=== PATIENT | female | born 1950 | race Caucasian/White ===

== ENCOUNTER 2016-12-11 12:46 | Inpatient (IN) | payer MEDICARE, OTHER ==
[~2016-12-11] VITALS: Ht 165.1 cm; Wt 105.5 kg
--- NOTE | ~2016-12-11 | CO ---
Unit #: [id number] #: [id number] Patient: JOSEY JULIAN [id number] [address] [place], [place] [address] [id number] MR#: [id number] NAME: JOSEY JULIAN ROOM: 478 Age: 66 Sex: F Admission Date: 12/11/2016 : 1950 Attending Physician: Omi Kraus M.D. Primary Care Physician: Yves Doctor Not In System Consultation Date: 12/12/2016 CONSULTATION REPORT REQUESTING PHYSICIAN Dr. Kraus. REASON FOR CONSULTATION Right hip infection. HISTORY OF PRESENT ILLNESS Ms. Julian is a 66-year-old female who had her right hip replaced back on November 15, 2016. At that point, she had been at a long term where she had been receiving IV vancomycin since hip replacement. She was noted to have increasing drainage as well as swelling and discomfort and saw Dr. Kraus in the outpatient office and was advised to come back in. She is now status post I and D of right hip joint placement. Surgical cultures are currently growing gram-negative rods. We have been asked to see the patient for antibiotic management. The patient is currently on vancomycin and Kefzol. PAST MEDICAL HISTORY 1. Hypertension. 2. Hypothyroidism. 3. Dyslipidemia. 4. Anxiety. 5. Bipolar. 6. Coronary artery disease. 7. History of previous stents. 8. COPD. 9. GERD. 10. Sleep apnea on CPAP. 11. Osteoarthritis. 12. DVT. PAST SURGICAL HISTORY 1. Right total hip arthroplasty about five years ago with closed reduction and acetabular revision on March 13, 2016. 2. History of removal in April of this past year and then replacement again in October of this past year of right hip. 3. History of left ankle, knee surgery. 4. History of left ankle open reduction internal fixation. SOCIAL HISTORY Patient is a former smoker but denies any smoking at this time. Denies any illicit drug use. Denies any alcohol use. She has currently been staying in a long term since her last replacement in October. Unit #: [id number] #: [id number] Patient: JOSEY JULIAN FAMILY HISTORY Noncontributory. ALLERGIES Codeine and morphine. MEDICATIONS Current medications reviewed. Patient is currently on vancomycin and Kefzol. REVIEW OF SYSTEMS All negative except for those stated in HPI which consists of right hip pain, drainage, redness, and tenderness. PHYSICAL EXAMINATION GENERAL: Pleasant, sitting up in the chair in no apparent distress, no current complaints. Alert and oriented. VITAL SIGNS: Current vital signs: Temperature is 98.5, heart rate 62, respirations 14, blood pressure 101/53. HEENT: Pupils equal, round, and reactive to light and accommodation. Head is normocephalic. NECK: Supple. CARDIOVASCULAR: Regular rate. Murmur auscultated. RESPIRATORY: Clear to auscultation, nonlabored. ABDOMEN: Soft, nontender. Positive bowel sounds. MUSCULOSKELETAL: Limited right hip movement. Moves all extremities equally. NEUROLOGIC: Alert and oriented. SKIN: Dry and intact. Right hip with surgical dressing in place and two drains in place. DIAGNOSTIC STUDIES LABORATORY: Glucose is 109, BUN 17, creatinine 0.9, sodium 140, potassium 3.9, chloride 105, CO2 is 26. White count 7.9, hemoglobin 8.4, hematocrit 24.5, platelets 343,000. IMAGING: None. MICROBIOLOGY: Current cultures from December 11: Hip culture with gram-negative rods. All other cultures are pending and pending sensitivity and organism identification. ASSESSMENT A 66-year-old female with recent right total hip replacement in October of this past year, status post incision and drainage and cultures currently growing with gram-negative rods. At this point, will continue vancomycin and will broaden antibiotics and discontinue Kefzol. Since patient recently has been residing in a long term, will cover for any possible multi-drug resistant organisms and change Kefzol to meropenem. Will followup on identification of cultures. Will also followup on operative report. At this point, will anticipate at least six weeks of IV antibiotics. Patient already has a PICC line in place, but will discuss further plans with Dr. Sousa who will see patient later in the day. At this point, patient is clinically stable and tolerating antibiotics. Will continue same for now and further recommendations to come from Dr. Sousa. Unit #: [id number] #: [id number] Patient: DERICJOSEY Dictated by... Marlin Gómez APRN for Alon Epstein/stalin TD: 12/12/2016 09:25 JOB #: [id number] CONSULTATION REPORT Page 1 of 1 X X CONSULTATION REPORT
--- NOTE | ~2016-12-11 | DS ---
Unit #: [id number] #: [id number] Patient: JOSEY LEOS [id number] [place] [id number] [facility]. [place], [place] [address] [id number] I MR#: [id number] NAME: JOSEY LEOS ROOM: 47 Age: 66 Sex: F Admission Date: 12/11/2016 : 1950 Discharge Date: 12/14/2016 Attending Physician: Omi Kraus M.D. Primary Care Physician: Generic Doctor Not In System DISCHARGE SUMMARY ADMITTING DIAGNOSIS Infected right total hip. DISCHARGE DIAGNOSIS Infected right total hip. PROCEDURES IN THE HOSPITAL I and D with poly exchange. SURGEON Dr. Kraus. HOSPITAL COURSE Patient admitted on 12/11 and taken to the operating room where she underwent the above procedure. Postoperatively, she has done fairly well. Her neurovascular exam is intact. She has been anemic and has required transfusion. She is getting another unit today. Her hemoglobin is 6.9. Her cultures are growing Klebsiella. She has been seen by infectious disease and is on Rocephin. It is felt she can be discharged to rehab today. She is on Coumadin for DVT prophylaxis. DISCHARGE INSTRUCTIONS 1. She is weightbearing as tolerated. 2. She will follow up in the office in two weeks. 3. The plan is to treat her for six weeks with IV antibiotics and then switch her over to Bactrim DS, which the organism is also sensitive to. CONDITION ON DISCHARGE Improved. DISPOSITION To rehab. Dictated by... Alon Maloney/nabil TD: 12/14/2016 08:00 Unit #: [id number] #: [id number] Patient: JOSEY LEOS JOB #: [id number] DISCHARGE SUMMARY Page 1 of 1 X Omi Kraus MD X DISCHARGE SUMMARY
--- NOTE | ~2016-12-11 | OR ---
Unit #: [id number] #: [id number] Patient: JOSEY LEOS [id number] [address] [place], [place] [address] [id number] MR#: [id number] NAME: JOSEY LEOS ROOM: 478 Date of Procedure: 12/11/2016 Admission Date: 12/11/2016 Surgeon: Omi Kraus M.D. : 1950 Attending Physician: Omi Kraus M.D. Primary Care Physician: Generic Doctor Not In System OPERATIVE REPORT PREOPERATIVE DIAGNOSIS Right hip infection. POSTOPERATIVE DIAGNOSIS Right hip infection. PROCEDURE PERFORMED I and D with poly exchange, right hip. ASSISTANTS Christopher and Dash. ANESTHESIA General. ESTIMATED BLOOD LOSS 200 to 400 mL. DESCRIPTION OF PROCEDURE The patient was brought to the operating room. She has already been on IV vancomycin. She was given a general anesthetic, placed in a decubitus position with the right side up. The right hip was prepped and draped in sterile fashion. [place] were removed from her previous reimplant, approximately 2-1/2 weeks ago. After the hip was prepped and draped, the previous skin incision was excised. The tissue was sent for culture as well as swabs of the fluid. The patient then had the subcutaneous dissected away and appeared to be infected. The joint was entered and there was cloudy fluid present. This was cultured. We then debrided the area as completely as possible. The hip was dislocated posteriorly. The head was removed. The stem was solid as was the cup. The liner was removed from the cup. The area was debrided, soaked in Betadine for 2 or 3 minutes and then irrigated with 3000 mL of bacitracin fluid. A new 52 neutral liner was positioned in the cup and then a +5, 36 head was applied. The hip was reduced and was found to be stable. Drain was positioned. The wound was irrigated one last time and then, the fascia was closed with 0 Vicryl. We then placed a drain in the subcu, and the subcutaneous was closed with 0 and 2-0 Vicryl, sekou in the skin. Sterile dressing applied. Abduction pillow positioned and general anesthetic was reversed. Dictated by... Unit #: [id number] #: [id number] Patient: JOSEY LEOS Alon Maloney/harrison TD: 12/12/2016 06:23 JOB #: [id number] OPERATIVE REPORT Page 1 of 1 X Omi Kraus MD PROCEDURE OPERATIVE NOTE
--- NOTE | ~2016-12-11 | CR145 ---
[facility] A Service of [facility] RADIOLOGY TEXT RESULTS PATIENT: JOSEY LEOS LOCATION: [place] [address]- : [birth year] UNIT #: [id number] AGE: [address]: Omi Kraus MD SEX: F ORDER DR: [id number] [facility] [address] [facility]. [place], [place] [address] [id number] MR#: [id number] Acc #: [id number] NAME: JOSEY LEOS : 1950 SEX: F STUDY DATE/TIME: 12/11/2016 17:31 UNIT: [facility] ROOM: [facility] STUDY DESCRIPTION: CR Hip 1 View Rt Attending Physician: Omi Kraus M.D. Ordering Physician: Omi Kraus M.D. Primary Care Physician: Generic Doctor Not In System MEDICAL IMAGING REPORT This report is preliminary unless electronic signature is present EXAM Right hip series 12/11/2016 HISTORY Postop ID PACU front, pain, swelling postop right total hip, osteoarthritis right hip, right hip pain. FINDINGS A single AP radiograph of the right hip is presented. Comparison 05/08/2016. The patient is status post revision right hip arthroplasty. The acetabular component appears fixed with 1 or 2 screws. This is somewhat unclear. There is a new longer femoral stem extending into the middle third of the femoral shaft. There is a cerclage wire around the proximal shaft and there is a partially healed longitudinal fracture involving the shaft between the greater and lesser trochanters. Two surgical drains in the operative bed. Skin sekou overlying operative bed. Subcutaneous edema in the operative bed. Orthopedic hardware normally located and aligned. Dictated by... Reddy Brasher M.D. THIS IS AN ELECTRONICALLY VERIFIED REPORT Reddy Brasher M.D. at 12/13/2016 6:14 PM INNA/sbaino TD: 12/12/2016 09:10 JOB #: [id number] MEDICAL IMAGING REPORT [facility] A Service of [facility] RADIOLOGY TEXT RESULTS PATIENT: JOSEY LEOS LOCATION: [facility] [id number] : [birth year] UNIT #: [id number] AGE: [address]: Omi Kraus MD SEX: F ORDER DR: Page 1 of 1 COPY
--- NOTE | ~2016-12-11 | CO ---
Unit #: [id number] #: [id number] Patient: JOSEY JULIAN [id number] [address] [address] [id number] I MR#: [id number] NAME: JOSEY JULIAN ROOM: 478 Age: 66 Sex: F Admission Date: 12/11/2016 : 1950 Attending Physician: Omi Kraus M.D. Primary Care Physician: Generic Doctor Not In System CONSULTATION REPORT CHIEF COMPLAINT Postop management. HISTORY OF PRESENT ILLNESS Ms. Julian is a 65-year-old female with a history of right total hip arthroplasty, complicated with infection and had a revision back of the right hip in 02/2016. The patient's course was complicated with failed revision of total hip with protrusion of the acetabular shell. Had a procedure revision of the acetabulum and the femoral head. On 05/08, presented to the emergency room for the I and D of the right hip. The patient is status post I and D. Emergency room consult has been placed for the postop management. The patient has a history of hypertension, hypothyroidism, and history of PE in the past. The patient's hemoglobin is down to 6.7 after procedure and was getting 2 units of packed red blood cells. Denies any chest pain. Denies any dizziness. Denies any fever. PAST MEDICAL HISTORY History of PE in the past, hypertension, hypothyroidism, history of bipolar and hyperlipidemia. PAST SURGICAL HISTORY Total knee replacement. ALLERGIES No known drug allergies. HOME MEDICATIONS The patient is on aspirin, Plavix, Lipitor, Enablex, K-Kacy, Imdur, Cymbalta, Abilify, Flonase, ferrous sulfate, Lamictal, Lasix, Levoxyl, anti-diarrheal loperamide, Lyrica, nicotine, hydrocodone, Norvasc, omeprazole, Spiriva, Desyrel, Valium, vancomycin, Coumadin, and Coreg. SOCIAL HISTORY Ex-smoker. No alcohol. No IV drug abuse. FAMILY HISTORY Positive for diabetes in her brother. REVIEW OF SYSTEMS No dizziness. No headache. Status post I and D of the right hip and all other systems have been reviewed and are negative. Unit #: [id number] #: [id number] Patient: JOSEY JULIAN PHYSICAL EXAMINATION VITAL SIGNS: Blood pressure 109/36, afebrile, heart rate is 74, respiratory rate 20. HEENT: Head is atraumatic and normocephalic. Pupils are equal and reactive to light and accommodation. Extraocular movements are intact. NECK: Supple. LUNGS: Decreased air entry at the bases. HEART: Regular rate and rhythm. ABDOMEN: Soft. Positive bowel sounds. EXTREMITIES: Status post I and D of the right hip. NEUROLOGIC: Alert, awake, and oriented. Eating the dinner. DIAGNOSTIC STUDIES LABORATORY RESULTS: INR is 1.1, PT is 12.1. WBC 9.5, hemoglobin 7.7, hematocrit 22.9, platelets are 410. Sodium 140, potassium 3.9, chloride 105, bicarb 26, glucose 109, BUN 17, creatinine 0.9. Postop hemoglobin 6.7 and hematocrit 20.5. ASSESSMENT AND PLAN 1. Status post I and D of the right hip. 2. Anemia likely secondary to postop blood loss. 3. Hypertension, stable. 4. Chronic obstructive pulmonary disease, stable. Continue with the deep venous thrombosis prophylaxis and follow with the cultures and continue with IV antibiotics and further recommendations will follow. Dictated by... Alon Hand/harrison TD: 12/12/2016 07:00 JOB #: [id number] CONSULTATION REPORT Page 1 of 1 X DEBBIE CHRISTENSEN MD X CONSULTATION REPORT
--- NOTE | ~2016-12-11 | US85 ---
[facility] A Service of [facility] RADIOLOGY TEXT RESULTS PATIENT: JOSEY LEOS LOCATION: [place] [address] : [birth year] UNIT #: [id number] AGE: [address]: Omi Kraus MD SEX: F ORDER DR: [id number] [facility] [address] [facility]. [place], [place] [address] [id number] I MR#: [id number] Acc #: [id number] NAME: JOSEY LEOS : 1950 SEX: F STUDY DATE/TIME: 12/13/2016 14:38 UNIT: [facility] ROOM: [facility] STUDY DESCRIPTION: US LE Veins Unilat or Ltd Stdy Attending Physician: Omi Kraus M.D. Ordering Physician: Karina Pan A.P.R.N. Primary Care Physician: Generic Doctor Not In System MEDICAL IMAGING REPORT This report is preliminary unless electronic signature is present EXAM Unilateral right lower extremity venous Doppler HISTORY Two week history of right leg swelling following surgery. TECHNIQUE Venous ultrasound examination of the right lower extremity was performed using grayscale, spectral Doppler and color flow Doppler imaging. FINDINGS The examination is negative. There is no evidence of right lower extremity deep venous thrombus from the groin to the lower calf. Visualized greater saphenous vein is also patent. IMPRESSION Negative examination. No evidence of right lower extremity deep venous thrombosis. Dictated by... Curry Garcia M.D. THIS IS AN ELECTRONICALLY VERIFIED REPORT Curry Garcia M.D. at 12/14/2016 4:59 PM JONA/pratik TD: 12/13/2016 16:24 JOB #: [id number] [facility] A Service of [facility] RADIOLOGY TEXT RESULTS PATIENT: JOSEY LEOS LOCATION: [place] [address] : [birth year] UNIT #: [id number] AGE: [address]: Omi Kraus MD SEX: F ORDER DR: MEDICAL IMAGING REPORT Page 1 of 1 COPY
[~2016-12-11 12:46] MED LIST: ABILIFY20 MG PO; ABILIFY5 MG PO; ALLERGY10 M1 PO; ALPRAZOLAM PO; AMLODIPINE BESYL5 MG PO; ASPIRIN ENTERI325 M1 PO; ASPIRIN81 M1 PO; CARVEDILOL25 MG PO; CLOPIDOGREL75 MG PO; COREG PO; COREG12.5 M1 PO; COUMADIN PO; CYMBALTA PO; ENABLEX15 MG PO; FERRO-TIME325 MG PO; FEXOFENADINE HC60 MG PO; FLONASE 0.05% N16 G1; FUROSEMIDE40 MG PO; HYDROCHLOROTHIA25 MG PO; HYDROCODON-ACE1 EAC5 PO; HYDROCODONE-A1 UDTA3 PO; IMDUR-ER30 M2 PO; IPRAT-ALBUT 0.5-3 ML INH; ISOSORBIDE DINI30 MG PO; ISOSORBIDE MONO30 M1 PO; KLONOPIN0.5 M3 PO; KLOR-CON PO; LAMICTAL150 MG PO; LEVOTHROID100 MC1 PO; LEVOTHYROXINE100 MCG PO; LIPITOR40 MG PO; LORATADINE PO; LOSARTAN POTASS50 MG PO; LOTREL 10-20 MG1 CAP PO; LOVENOX; LOVENOX100 MG/ML INJ; LOVENOX30 MG/0.3; LYRICA PO; LYRICA200 MG PO; MELOXICAM15 MG PO; MODAFINIL200 MG PO; MULTIPLE VITAMI1 T13 PO; NICOTINE TRANSD14 MG EXT; NICOTINE TRANSD21 MG EXT; OMEPRAZOLE20 M1 PO; OMEPRAZOLE40 MG PO; PLAVIX PO; PROAIR HFA8.5 GM INH; SIMVASTATIN80 MG PO; SPIRIVA18 MCG INH; SYMBICORT INH; VESICARE PO; VIIBRYD40 MG PO; WARFARIN SODIUM10 MG PO; WELLBUTRIN SR150 MG PO
[2016-12-11] MEDS ORDERED: CYMBALTA30 M1 PO (13:00)
[2016-12-11] MEDS ORDERED: ABILIFY10 MG PO (13:04)
[2016-12-11] MEDS ORDERED: FERRO-TIME325 MG PO (13:05)
[2016-12-11] MEDS ORDERED: FLONASE 0.05% N16 G1 (13:05)
[2016-12-11] MEDS ORDERED: LASIX20 MG PO (13:06)
[2016-12-11] MEDS ORDERED: LAMICTAL100 MG PO (13:06)
[2016-12-11] MEDS ORDERED: LAMICTAL25 MG PO (13:06)
[2016-12-11] MEDS ORDERED: ANTI-DIARRHEAL2 M1 PO (13:07)
[2016-12-11] MEDS ORDERED: LEVOXYL100 MC1 PO (13:07)
[2016-12-11] MEDS ORDERED: HYDROCODON-ACE1 EAC5 PO (13:08)
[2016-12-11] MEDS ORDERED: NICOTINE1 EAC2 TD (13:08)
[2016-12-11] MEDS ORDERED: LYRICA100 MG PO (13:08)
[2016-12-11] MEDS ORDERED: SPIRIVA18 MCG INH (13:09)
[2016-12-11] MEDS ORDERED: OMEPRAZOLE20 M2 PO (13:09)
[2016-12-11] MEDS ORDERED: DESYREL50 MG PO (13:09)
[2016-12-11] MEDS ORDERED: NORVASC10 MG PO (13:09)
[2016-12-11] MEDS ORDERED: VALIUM2 M1 PO (13:10)
[2016-12-11] MEDS ORDERED: VANCOMYCIN1.5 GM/253 IV (13:11)
[2016-12-11 13:26] LABS: BASOPHIL# 0.1 X10e3 (0-0.3); BASOPHIL% 1.3 % (0-2.5); EOSINOPHIL# 0.3 X10e3 (0-0.7); EOSINOPHIL% 2.7 % (0.0-7.0); HEMATOCRIT 22.9 % (35.0-45.0); HEMOGLOBIN 7.7 gm/dL (12.0-16.0); LYMPHOCYTE# 1.6 X10e3 (1.0-3.5); MEAN CELL VOLUME 89.3 FL (83-96); MEAN CORPUSCULAR HEMOGLOBIN 30.2 PG (28-34); MEAN CORPUSCULAR HGB CONC 33.7 g/dL (30-36); MEAN PLATELET VOLUME 8.7 FL (6.5-11.5); MONOCYTE# 0.7 X10e3 (0-1.0); MONOCYTE% 7.4 % (3.0-12.0); NEUTROPHIL# 6.8 X10e3 (1.5-7.1); NEUTROPHIL% 71.6 % (40-75); PLATELET COUNT 410 X10e3 (140-420); RED BLOOD COUNT 2.57 X10e (3.90-5.30); RED CELL DISTRIBUTION WIDTH 14.6 % (11.0-15.5); WHITE BLOOD COUNT 9.5 X10e3 (4.0-10.5)
[2016-12-11 13:27] LABS: DIFF IND YES
[2016-12-11] MEDS ORDERED: COUMADIN PO ×2 (13:34→13:35)
[2016-12-11 13:35] LABS: INR 1.1; PROTHROMBIN TIME (PATIENT) 12.1 SECONDS (10.0-11.7)
[2016-12-11] MEDS ORDERED: COREG12.5 M1 PO (13:41)
[2016-12-11 13:50] LABS: BUN/CREATININE RATIO 18.88; CALCIUM SERUM 8.7 mg/dL (8.4-10.2); CREATININE SERUM 0.9 mg/dL (0.6-1.4); GLOM FILT RATE Estimated 66.7 mL/min (>60); POTASSIUM 3.9 mmol/L (3.5-5.1)
[2016-12-11 13:52] LABS: ANISOCYTOSIS MOD; HYPOCHROMIA MOD; PLATELET ESTIMATE NORMAL (NORMAL); POIKILOCYTOSIS SL
[2016-12-11 16:59] LABS: HEMATOCRIT 20.5 % (35.0-45.0)
[2016-12-11 17:01] LABS: HEMOGLOBIN 6.7 gm/dL (12.0-16.0)
[2016-12-11 19:32] LABS: INR 1.2; PROTHROMBIN TIME (PATIENT) 12.5 SECONDS (10.0-11.7)
[2016-12-12 08:10] LABS: BASOPHIL# 0.1 X10e3 (0-0.3); EOSINOPHIL# 0.3 X10e3 (0-0.7); EOSINOPHIL% 4.1 % (0.0-7.0); HEMATOCRIT 24.5 % (35.0-45.0); HEMOGLOBIN 8.4 gm/dL (12.0-16.0); LYMPHOCYTE# 1.3 X10e3 (1.0-3.5); LYMPHOCYTE% 16.7 % (17.0-45.0); MEAN CELL VOLUME 89.9 FL (83-96); MEAN CORPUSCULAR HGB CONC 34.5 g/dL (30-36); MEAN PLATELET VOLUME 8.2 FL (6.5-11.5); MONOCYTE# 0.9 X10e3 (0-1.0); MONOCYTE% 10.9 % (3.0-12.0); NEUTROPHIL# 5.4 X10e3 (1.5-7.1); NEUTROPHIL% 67.3 % (40-75); PLATELET COUNT 343 X10e3 (140-420); RED BLOOD COUNT 2.72 X10e (3.90-5.30); RED CELL DISTRIBUTION WIDTH 14.7 % (11.0-15.5); WHITE BLOOD COUNT 7.9 X10e3 (4.0-10.5)
[2016-12-12 08:11] LABS: DIFF IND NO
[2016-12-12 08:15] LABS: INR 1.1; PROTHROMBIN TIME (PATIENT) 12.2 SECONDS (10.0-11.7)
[2016-12-12 13:07] LABS: BASOPHIL# 0.1 X10e3 (0-0.3); BASOPHIL% 0.8 % (0-2.5); EOSINOPHIL# 0.3 X10e3 (0-0.7); EOSINOPHIL% 3.8 % (0.0-7.0); HEMATOCRIT 25.1 % (35.0-45.0); HEMOGLOBIN 8.6 gm/dL (12.0-16.0); LYMPHOCYTE# 1.4 X10e3 (1.0-3.5); LYMPHOCYTE% 16.4 % (17.0-45.0); MEAN CORPUSCULAR HEMOGLOBIN 30.8 PG (28-34); MEAN CORPUSCULAR HGB CONC 34.3 g/dL (30-36); MEAN PLATELET VOLUME 8.5 FL (6.5-11.5); MONOCYTE# 0.8 X10e3 (0-1.0); MONOCYTE% 9.7 % (3.0-12.0); NEUTROPHIL# 5.7 X10e3 (1.5-7.1); NEUTROPHIL% 69.3 % (40-75); PLATELET COUNT 338 X10e3 (140-420); RED BLOOD COUNT 2.79 X10e (3.90-5.30); RED CELL DISTRIBUTION WIDTH 15.1 % (11.0-15.5); WHITE BLOOD COUNT 8.2 X10e3 (4.0-10.5)
[2016-12-12 13:08] LABS: DIFF IND NO
[2016-12-12 13:48] LABS: BUN/CREATININE RATIO 13.33; CALCIUM SERUM 8.3 mg/dL (8.4-10.2); CREATININE SERUM 0.9 mg/dL (0.6-1.4); GLOM FILT RATE Estimated 66.7 mL/min (>60); MAGNESIUM 1.9 mg/dL (1.6-3.0); POTASSIUM 3.7 mmol/L (3.5-5.1)
[2016-12-13 04:08] LABS: BASOPHIL# 0.1 X10e3 (0-0.3); BASOPHIL% 1.1 % (0-2.5); EOSINOPHIL# 0.4 X10e3 (0-0.7); EOSINOPHIL% 5.6 % (0.0-7.0); HEMATOCRIT 22.1 % (35.0-45.0); HEMOGLOBIN 7.5 gm/dL (12.0-16.0); LYMPHOCYTE# 1.5 X10e3 (1.0-3.5); LYMPHOCYTE% 22.5 % (17.0-45.0); MEAN CELL VOLUME 89.9 FL (83-96); MEAN CORPUSCULAR HEMOGLOBIN 30.5 PG (28-34); MEAN CORPUSCULAR HGB CONC 33.9 g/dL (30-36); MEAN PLATELET VOLUME 8.8 FL (6.5-11.5); MONOCYTE# 0.6 X10e3 (0-1.0); MONOCYTE% 9.7 % (3.0-12.0); NEUTROPHIL# 3.9 X10e3 (1.5-7.1); NEUTROPHIL% 61.1 % (40-75); PLATELET COUNT 302 X10e3 (140-420); RED BLOOD COUNT 2.46 X10e (3.90-5.30); WHITE BLOOD COUNT 6.4 X10e3 (4.0-10.5)
[2016-12-13 04:09] LABS: DIFF IND YES
[2016-12-13 04:15] LABS: INR 1.3; PROTHROMBIN TIME (PATIENT) 13.9 SECONDS (10.0-11.7)
[2016-12-13 04:27] LABS: BUN/CREATININE RATIO 13.33; CALCIUM SERUM 7.8 mg/dL (8.4-10.2); CREATININE SERUM 0.9 mg/dL (0.6-1.4); GLOM FILT RATE Estimated 66.7 mL/min (>60); POTASSIUM 3.7 mmol/L (3.5-5.1)
[2016-12-13 04:39] LABS: PLATELET ESTIMATE NORMAL (NORMAL)
[2016-12-13 04:40] LABS: ANISOCYTOSIS MOD
[2016-12-14 02:22] LABS: BASOPHIL# 0.1 X10e3 (0-0.3); BASOPHIL% 1.2 % (0-2.5); EOSINOPHIL# 0.3 X10e3 (0-0.7); EOSINOPHIL% 4.6 % (0.0-7.0); HEMATOCRIT 20.7 % (35.0-45.0); LYMPHOCYTE# 1.4 X10e3 (1.0-3.5); LYMPHOCYTE% 21.5 % (17.0-45.0); MEAN CELL VOLUME 89.7 FL (83-96); MEAN CORPUSCULAR HEMOGLOBIN 29.7 PG (28-34); MEAN CORPUSCULAR HGB CONC 33.2 g/dL (30-36); MEAN PLATELET VOLUME 8.8 FL (6.5-11.5); MONOCYTE# 0.6 X10e3 (0-1.0); MONOCYTE% 9.7 % (3.0-12.0); PLATELET COUNT 315 X10e3 (140-420); RED CELL DISTRIBUTION WIDTH 15.2 % (11.0-15.5); WHITE BLOOD COUNT 6.3 X10e3 (4.0-10.5)
[2016-12-14 02:23] LABS: DIFF IND NO; HEMOGLOBIN 6.9 gm/dL (12.0-16.0)
[2016-12-14 02:37] LABS: ALBUMIN SERUM 2.3 g/dL (3.5-5.0); BILIRUBIN,TOTAL 0.3 mg/dL (0.2-2.0); BUN/CREATININE RATIO 13.75; CREATININE SERUM 0.8 mg/dL (0.6-1.4); GLOM FILT RATE Estimated 76.9 mL/min (>60); MAGNESIUM 1.7 mg/dL (1.6-3.0); POTASSIUM 3.8 mmol/L (3.5-5.1)
[2016-12-14 02:57] LABS: THYROID STIMULATING HORMONE 9.23 uIU/ml (0.34-5.60)
[2016-12-14 03:04] LABS: FREE THYROXIN (T4) 0.82 ng/dL (0.58-1.64)
[2016-12-14 12:21] LABS: HEMATOCRIT 24.6 % (35.0-45.0); HEMOGLOBIN 8.3 gm/dL (12.0-16.0)
[2016-12-14 12:33] LABS: INR 1.3; PROTHROMBIN TIME (PATIENT) 14.3 SECONDS (10.0-11.7)
== END 2016-12-14 19:39 | DRG 467 ==
LOC: CSUR 12:46 → C4C 14:16 → CSUR 18:25 → C4C 12-14 19:39
PROVIDERS: Internal Medicine; Nurse Practitioner; Orthopaedic Surgery
PROC: 0SP909Z Removal of Liner from Right Hip Joint, Open Approach (ICD-10-PCS; 2016-12-11)
PROC: 0SUA09Z Supplement Right Hip Joint, Acetabular Surface with Liner, Open Approach (ICD-10-PCS; 2016-12-11)
PROC: 0SPR0JZ Removal of Synthetic Substitute from Right Hip Joint, Femoral Surface, Open Approach (ICD-10-PCS; 2016-12-11)
PROC: 0SRR01Z Replacement of Right Hip Joint, Femoral Surface with Metal Synthetic Substitute, Open Approach (ICD-10-PCS; principal; 2016-12-11 14:00)
PROC: 30233N1 Transfusion of Nonautologous Red Blood Cells into Peripheral Vein, Percutaneous Approach (ICD-10-PCS; 2016-12-12)
DX: T84.51XA Infection and inflammatory reaction due to internal right hip prosthesis, initial encounter (principal); D62 Acute posthemorrhagic anemia; J44.9 Chronic obstructive pulmonary disease, unspecified; E83.42 Hypomagnesemia; I10 Essential (primary) hypertension; Y79.2 Prosthetic and other implants, materials and accessory orthopedic devices associated with adverse incidents; E03.9 Hypothyroidism, unspecified; E78.5 Hyperlipidemia, unspecified; F41.9 Anxiety disorder, unspecified; F31.9 Bipolar disorder, unspecified; I25.10 Atherosclerotic heart disease of native coronary artery without angina pectoris; K21.9 Gastro-esophageal reflux disease without esophagitis; G47.33 Obstructive sleep apnea (adult) (pediatric); M19.90 Unspecified osteoarthritis, unspecified site; Z86.718 Personal history of other venous thrombosis and embolism; Z87.891 Personal history of nicotine dependence; B96.1 Klebsiella pneumoniae [K. pneumoniae] as the cause of diseases classified elsewhere
CPT/HCPCS: 36430; 73501; 80048; 80053; 80202; 83735; 84439; 84443; 85014; 85018; 85025; 85610; 86850; 86870; 86885; 86900; 86901; 86905; 86922; 87070; 87075; 87077; 87186; 87205; 93971; 94640; 94664; 94760; 97110; 97116; 97161; 97165; 97530; 97535; C1776; G8978-GO; G8978-GP; G8979-GO; G8979-GP; G8980-GP; G8987-GO; G8988-GO; J0330; J0690; J0696; J1170; J1650; J2185; J2250; J2405; J3010; J3370; P9016